=== PATIENT | female | born 1970 | race Caucasian/White ===

== ENCOUNTER → 2017-01-12 | Outpatient (CLI) | payer BC ==
[~2017-01-12] MED LIST: KLONOPIN 1MG1 MG PO; NORCO 325 MG-51 TAB PO; WELLBUTRIN SR150 M1 PO
== END ==
LOC: MC.RAD 15:57
DX: Z12.31 Encounter for screening mammogram for malignant neoplasm of breast (principal)

== ENCOUNTER 2017-07-09 18:17 | Emergency (ER) | payer BC ==
[~2017-07-09] VITALS: Ht 167.6 cm; Wt 77.3 kg
[2017-07-09 18:22] VITALS: BP 163/75
[2017-07-09] MEDS ORDERED: KLONOPIN 1MG1 MG PO (18:40)
[2017-07-09] MEDS ORDERED: WELLBUTRIN SR150 M1 PO (18:40)
[2017-07-09] MEDS ORDERED: NORCO 325 MG-51 TAB PO (19:42)
[2017-07-09 20:04] VITALS: PULSE 52; TEMP 97
== END 2017-07-09 20:00 | disposition home or self-care (01) ==
LOC: COL.ER 18:17
DX: S10.96XA Insect bite of unspecified part of neck, initial encounter (principal); F41.9 Anxiety disorder, unspecified; F32.9 Major depressive disorder, single episode, unspecified; W57.XXXA Bitten or stung by nonvenomous insect and other nonvenomous arthropods, initial encounter; Y92.009 Unspecified place in unspecified non-institutional (private) residence as the place of occurrence of the external cause
CPT/HCPCS: J3010

== ENCOUNTER → 2018-01-22 | Outpatient (CLI) | payer BC | LOC: MC.RAD 11:40 | DX: Z12.31 Encounter for screening mammogram for malignant neoplasm of breast (principal) ==

== ENCOUNTER → 2019-09-02 | Outpatient (CLI) | payer BC | LOC: MC.RAD 13:18 | DX: Z12.31 Encounter for screening mammogram for malignant neoplasm of breast (principal) ==

== ENCOUNTER 2019-12-11 21:06 | Emergency (ER) | payer BC ==
[~2019-12-11] VITALS: Ht 165.1 cm; Wt 66.8 kg
[2019-12-11 22:03] LABS: COLLECTION METHOD CLEAN CATCH
[2019-12-11 22:06] LABS: BASO % 0.6 % (0.0-2.0); EOS # 0.1 (0.0-0.7); EOS % 1.2 % (0-4.0); GRAN # 2.6 (1.4-6.5); GRAN % 51.3 % (42.2-75.2); HEMATOCRIT 42.7 % (37.0-47.0); HEMOGLOBIN 14.4 g/dl (12.5-16.0); LYMPH % 39.1 % (20.0-51.0); MEAN CELL VOLUME 94 fl (80.0-100.0); MEAN CORPUSCULAR HEMOGLOBIN 32 pg (27.0-31.0); MEAN CORPUSCULAR HGB CONC 34 g/dl (33.0-37.0); MEAN PLATELET VOLUME 11.3 fl (7.4-10.4); MONO # 0.4 (0.1-0.6); MONO % 7.8 % (1.7-9.3); PLATELET COUNT 183 K/mm3 (130-400); RED BLOOD COUNT 4.54 M/mm3 (4.10-5.30); REDCELL DISTRIBUTION WIDTH-CV 11.9 % (11.5-14.5)
[2019-12-11 22:10] LABS: PH 6 (5-8); SQUAMOUS EPITHELIAL None Seen /hpf; URINE APPEARANCE Clear; URINE BACTERIA None Seen /hpf; URINE BILIRUBIN Negative (NEGATIVE); URINE BLOOD Negative (NEGATIVE); URINE COLOR Yellow; URINE GLUCOSE Negative (NEGATIVE); URINE KETONE Negative (NEGATIVE); URINE LEUKOCYTE ESTERASE Trace (NEGATIVE); URINE NITRATE Negative (NEGATIVE); URINE PROTEIN(semi-quant) Negative (NEGATIVE); URINE RBC 0-2 /hpf; URINE UROBILINOGEN Negative (NEGATIVE)
[2019-12-11 22:23] LABS: ALANINE AMINOTRANSFERASE 30 U/L (9-52); ALBUMIN 4.5 gm/dL (3.5-5.0); ALKALINE PHOSPHATASE 67 U/L (50-136); ANION GAP 9 mmol/L (7-16); AST,SGOT 27 U/L (15-37); BILIRUBIN,TOTAL 0.4 mg/dL (0.0-1.0); BLOOD UREA NITROGEN 6 mg/dL (7-17); CALCIUM 9.9 mg/dL (8.4-10.2); CARBON DIOXIDE 29 mmol/L (22-30); CHLORIDE 101 mmol/L (98-107); CREATININE, serum 0.87 (0.52-1.25); GLUCOSE 90 mg/dL (74-106); SODIUM 139 mmol/L (137-145); TOTAL PROTEIN 7.2 gm/dL (6.4-8.2)
[2019-12-11 22:30] LABS: C-REACTIVE PROTEIN < 0.5 mg/dL (0.0-0.9)
[2019-12-11 23:27] VITALS: BP 140/100; PULSE 52; TEMP 98.2
== END 2019-12-11 23:27 | disposition home or self-care (01) ==
LOC: COL.ER 21:06
PROVIDERS: Emergency Medicine
DX: R10.32 Left lower quadrant pain (principal)
CPT/HCPCS: J1170; J2405; J7030; Q9967

== ENCOUNTER → 2020-11-02 | Outpatient (CLI) | payer BC | LOC: MC.RAD 13:30 | DX: Z12.31 Encounter for screening mammogram for malignant neoplasm of breast (principal) ==

== ENCOUNTER 2023-03-29 06:52 | Day surgery (SDC) | payer BC ==
[~2023-03-29] VITALS: Ht 165.1 cm; Wt 63.7 kg
[2023-03-29] MEDS ORDERED: LAMICTAL 100MG100 MG PO (07:26)
[2023-03-29] MEDS ORDERED: WELLBUTRIN XL150 MG PO (07:26)
[2023-03-29 08:04] VITALS: BP 130/79; PULSE 50; TEMP 97.8
[2023-03-29 09:28] VITALS: BP 121/78; PULSE 50; TEMP 97
--- NOTE | 2023-03-29 09:28 | NUR ---
The patient arrived back to [facility] from the endoscopy suite at this time. The patient appears alert and oriented and ambulated from the cart to the recliner in her room with the stand by assistance of two nurses. The patient agrees to try some cranberry juice. She reports that her left eye feels "dry and gritty" it does appear to be red and she was given a saline flush at her request to help with the irritation. Post procedure vital signs were started. Warm blanket provided. Denies any further needs.
[2023-03-29 09:41] VITALS: BP 118/72; PULSE 56
--- NOTE | 2023-03-29 09:42 | NUR ---
The patient appears to be tolerating the cranberry juice well. Vital signs appear stable. The patient reports that her eye feels "a little bit better" after the flush. She denies any further needs at this time. Call light is within reach. She is just waiting to speak with Dr. Harrell regarding the findings of the procedures before she can be discharged.
[2023-03-29 09:55] VITALS: BP 133/84; PULSE 50
--- NOTE | 2023-03-29 10:07 | NUR ---
Discharge instructions were reviewed with the patient at this time. She verbalized understanding and has no questions for the nurse at this time. The patient's IV to her right hand was removed and a pressure dressing was applied to the site. The nurse instructed the patient to get dresesd and notify the staff when she is ready to be escorted out.
--- NOTE | 2023-03-29 10:19 | NUR ---
The patient was escorted out via wheelchair to a private vehicle by ROBERT Cook. The patient's belongings and discharge paperwork were sent with her. The patient's is present to drive her home.
== END 2023-03-29 10:19 | disposition home or self-care (01) ==
LOC: SDCO 06:52
DX: K52.839 Microscopic colitis, unspecified (principal); R19.4 Change in bowel habit; R19.5 Other fecal abnormalities; K57.30 Diverticulosis of large intestine without perforation or abscess without bleeding; K64.0 First degree hemorrhoids; R15.2 Fecal urgency; Z86.19 Personal history of other infectious and parasitic diseases
CPT/HCPCS: J2405; J2704; J7120